=== PATIENT | female | born 1935 | race Caucasian/White ===

== ENCOUNTER 2016-09-20 10:32 | Outpatient (CLI) | payer MEDICARE ==
--- NOTE | 2016-09-20 21:43 | Diagnostic Imaging Report ---
SUNNY ADDISON [facility] [id number] [facility] [address] [address] Report Submission Date: September 20, 2016 2:33:57 PM CDT Patient Study Name: ALEXA LIZAMA Date: September 20, 2016 10:42:00 AM CDT Modality Type: CR Gender: F Description: SHOULDER : 37 Institution: [facility] Physician: SUNNY ADDISON Right shoulder 3 views History: Pain for 2 months Findings: An acromion enthesophyte is present. The shoulder is otherwise intact without fracture, dislocation, or arthropathy. Electronically signed on September 20, 2016 2:33:57 PM CDT by: Amor NEWSOME
== END 2016-09-20 10:33 ==
LOC: RAD 10:32
PROVIDERS: ATTEND Physician Assistant
DX: M25.511 Pain in right shoulder (principal)
CPT/HCPCS: 73030

== ENCOUNTER 2016-10-06 12:52 | Outpatient (CLI) | payer MEDICARE | END 2016-10-06 12:53 | LOC: POD 12:52 | PROVIDERS: ATTEND Podiatrist | DX: B35.1 Tinea unguium (principal); M79.674 Pain in right toe(s); M79.675 Pain in left toe(s) | CPT/HCPCS: 11721; G0463 ==

== ENCOUNTER 2017-11-27 13:58 | Outpatient (CLI) | payer MEDICARE ==
[2017-11-27 15:02] LABS: BASOPHILS % 0.5 (0.0-1.5); EOSINOPHILS % 1.9 % (0.0-6.8); MEAN CORPUSCULAR VOLUME 91.3 fl (80.0-100.0); NEUTROPHILS # 6.9 # k/uL (1.4-7.7)
[2017-11-27 15:04] LABS: eGFR (African) > 60; eGFR (Non-African) 38
== END 2017-11-27 14:00 ==
LOC: LAB 13:58
PROVIDERS: ATTEND Family Medicine
DX: R53.83 Other fatigue (principal); M79.604 Pain in right leg; R53.1 Weakness
CPT/HCPCS: 36415; 80053; 84443; 85025

== ENCOUNTER 2018-05-13 12:13 | Outpatient (CLI) | payer MEDICARE ==
--- NOTE | 2018-05-13 13:16 | Diagnostic Imaging Report ---
CLARISSA OREILLY [facility] [address] [facility] [address] [address] Report Submission Date: May 13, 2018 12:59:30 PM [employer] Patient Study Name: ALEXA GOMEZ Date: May 13, 2018 12:25:26 PM [employer] Modality Type: US Gender: F Description: RLEV : 37 Institution: [facility] Physician: CLARISSA OREILLY Examination: Ultrasound right vein History: RT LEG PAIN Findings: Sonographic evaluation of the right lower extremity venous system from the groin to the popliteal fossa inclusive. Normal compressibility. No luminal filling defect. Normal waveforms and response to augmentation. No popliteal region fluid collection. Impression: No evidence for deep venous thrombosis. Electronically signed on May 13, 2018 12:59:30 PM [employer] by: Devin NEWSOME
== END 2018-05-13 12:20 ==
LOC: RAD 12:13
PROVIDERS: ATTEND Family Medicine
DX: M79.606 Pain in leg, unspecified (principal); M79.89 Other specified soft tissue disorders
CPT/HCPCS: 93971